=== PATIENT | male | born 1940 | race Caucasian/White ===

== ENCOUNTER → 2018-07-30 | Day surgery (SDC) | payer BC, MEDICARE ==
[2018-07-29 12:33] LABS: BASOPHILS # (AUTO) 0.1 (0.0-0.1); BASOPHILS % 0.5 % (0.0-1.0); EOSINOPHILS # (AUTO) 0.2 (0.0-0.4); EOSINOPHILS % 1.6 % (0.0-6.0); HEMATOCRIT 36.7 % (38.2-49.6); HEMOGLOBIN 11.4 g/dL (14.0-18.0); LYMPHOCYTES # (AUTO) 1.7 (1.0-3.2); MEAN CORPUSCULAR HGB CONC 31.1 g/dL (31-35); MEAN CORPUSCULAR VOLUME 83.6 fL (81-99); MONOCYTES # (AUTO) 0.7 (0.2-0.8); MONOCYTES % 7.5 % (4.4-11.3); NEUTROPHILS # (AUTO) 7.1 (2.1-6.9); NEUTROPHILS % 72.9 % (38.7-80.0); PLATELET COUNT 181 x10e3/uL (140-360); RED BLOOD COUNT 4.39 x10e6/uL (4.3-5.7)
--- NOTE | 2018-07-29 13:10 | Diagnostic Imaging Report ---
EXAMINATION: PA and lateral views of the chest. COMPARISON: None CLINICAL HISTORY: Preoperative evaluation, lung surgery DISCUSSION: Lines/tubes: None. Lungs: The lungs are well inflated. Linear opacity within the left midlung. Central pulmonary venous congestion. Pleura: No pleural effusion or pneumothorax. Heart and mediastinum: Cardiomegaly. Bones and soft tissues: No acute bony abnormalities. IMPRESSION: Cardiomegaly with central pulmonary venous congestion. Linear opacity within the left midlung may reflect atelectasis or scarring. Additional pathology may be obscured. Signed by: Dr. Mendez Alvarado M.D. on 07/29/2018 1:07 PM
[~2018-07-30] MED LIST: ATARAX 25MG25 MG; DICYCLOMINE HCL 20 MG/2 ML VIAL IM SCH; GLIPIZIDE ER2.5 M1 PO; ISOSORBIDE MONO20 MG PO; LEXAPRO10 MG PO; METFORMIN HCL500 M3; PROPOFOL IV EMULSION 10 MG/ML 50 ML VIAL ONE; SIMVASTATIN20 MG PO; Z IRON PO; Z.0.ACTOS30 MG PO; Z.0.ATENOLOL50 MG PO; Z.0.DIOVAN160 MG PO; Z.0.FLOMAX0.4 MG PO; Z.0.MECLIZINE HCL12. PO; Z.0.NEXIUM40 MG PO; Z.0.TRICOR145 MG PO; Z.0.VOLTAREN100 GM TP; [UNRECOGNIZED DRUG - OTHER]; [UNRECOGNIZED DRUG - OTHER]; [UNRECOGNIZED DRUG - OTHER]; [UNRECOGNIZED DRUG - OTHER] PO
--- OUTSIDE RECORDS SUMMARY | 2018-07-30 10:12 | XMS REPORT ---
Author Author [facility] Address Unknown Phone Unavailable Care Team Providers Care Clinical Engineering Manager Name Role Phone CORBY MEDINA Unavailable Unavailable Problems This patient has no known problems. Allergies, Adverse Reactions, Alerts This patient has no known allergies or adverse reactions. Medications This patient has no known medications. Results Test Description Test Time Test Comments Text Results Atomic Results Result Comments CHEST 2 VIEWS 2018-07-29 13:05:00 [facility] [address] [place] [address] Patient Name: GARLAND MORAN MR #: [id number] : 1940 Age/Sex: 77/M Req #: [id number] [facility] Physician: Ordered by: CORBY MEDINA MD Report #: [id number] Location: OR Room/Bed: Procedure: [id number] DX/CHEST 2 VIEWS Exam Date: 07/29/18 Exam Time: 1157 REPORT STATUS: Signed EXAMINATION: PA and lateral views of the chest. COMPAR TOMY: None CLINICAL HISTORY: Preoperative evaluation, lung surgery DISCUSSION: Lines/tubes: None. Lungs: The lungs are well inflated. Linear opacity within the left midlung. Central pulmonary venous congestion. Pleura: No pleural effusion or pneumothorax. Heart and mediastinum: Cardiomegaly. Bones and soft tissues: No acute bony abnormalities. IMPRESSION: Cardiomegaly with central pulmonary venous congestion. Linear opacity within the left midlung may reflect atelectasis or scarring. Additional pathology may be obscured. Signed by: Dr. Eileen Garcia M.D. on 07/29/2018 1:07 PM Dictated By: EILEEN GARCIA MD [id number] Transcribed By: BONY on 07/29/18 1300 COPY TO: CORBY MEDINA MD
[2018-07-30 12:35] VITALS: BP 177/75
--- NOTE | 2018-07-30 16:14 | Operative Report ---
DATE OF PROCEDURE: 07/30/2018 SURGEON: Tad Carty MD PROCEDURE PERFORMED: Colonoscopy. PREOPERATIVE DIAGNOSIS: History of colonic polyps. POSTOPERATIVE DIAGNOSES: 1. Colonic polyp. 2. Diverticulosis. 3. Internal hemorrhoids. PREOPERATIVE MEDICATIONS: Consisted of IV sedation administered under MAC anesthesia. PROCEDURE IN DETAIL: Using an Olympus Essensium video colonoscope, it was inserted into the patient's rectum, advanced up into the sigmoid colon, then up into the descending colon. Extensive diverticula of all various sizes, small and large were seen. The scope was unable to get beyond the mid descending colon secondary to the extensive diverticulosis. As we withdrew the colonoscope back down to the rectum, 1 cm sized rectal polyp was seen and removed with the electrical snare cautery. Internal hemorrhoids were also noted. The colonoscope was withdrawn from the patient's rectum and the procedure was ended. Tad Carty MD SAF/MODL /[id number]
== END | disposition home or self-care (01) ==
LOC: OR 10:07
PROVIDERS: ATTEND Internal Medicine Gastroenterology
DX: R19.7 Diarrhea, unspecified (principal); K62.1 Rectal polyp; K57.30 Diverticulosis of large intestine without perforation or abscess without bleeding; K64.8 Other hemorrhoids; K21.9 Gastro-esophageal reflux disease without esophagitis; E11.9 Type 2 diabetes mellitus without complications; I10 Essential (primary) hypertension; I45.10 Unspecified right bundle-branch block; E66.01 Morbid (severe) obesity due to excess calories; E78.5 Hyperlipidemia, unspecified; G47.33 Obstructive sleep apnea (adult) (pediatric); F32.9 Major depressive disorder, single episode, unspecified; Z01.810 Encounter for preprocedural cardiovascular examination; Z01.818 Encounter for other preprocedural examination; Z79.84 Long term (current) use of oral hypoglycemic drugs; Z68.45 Body mass index [BMI] 70 or greater, adult
CPT/HCPCS: 36415 ×2; 45385; 71046; 82948; 85025; 93005; J0500; J2704; 45378